=== PATIENT | female | born 1940 | race Caucasian/White ===

== ENCOUNTER 2018-11-05 08:57 | Emergency (ER) | payer OTHER ==
[~2018-11-05] VITALS: Ht 132.1 cm; Wt 63.5 kg
[2018-11-05] MEDS ORDERED: CITALOPRAM HBR10 MG (09:06)
[2018-11-05] MEDS ORDERED: METFORMIN HCL500 MG (09:07)
[2018-11-05] MEDS ORDERED: SEROQUEL25 MG (09:07)
[2018-11-05] MEDS ORDERED: FOLGARD TABLET1 EACH (09:07)
[2018-11-05] MEDS ORDERED: NAMENDA10 MG (09:07)
== END 2018-11-05 14:34 | disposition home or self-care (01) ==
LOC: ER 08:57
DX: K29.70 Gastritis, unspecified, without bleeding (principal)